=== PATIENT | male | born 1980 | race Caucasian/White ===

== ENCOUNTER → 2017-11-13 09:09 | Outpatient (CLI) | payer OTHER | END | disposition home or self-care (01) | LOC: D.RT 09:09 | DX: S62.92XA Unspecified fracture of left hand, initial encounter for closed fracture (principal); X58.XXXA Exposure to other specified factors, initial encounter; Y93.89 Activity, other specified; Y92.89 Other specified places as the place of occurrence of the external cause; E55.9 Vitamin D deficiency, unspecified; J06.9 Acute upper respiratory infection, unspecified ==

== ENCOUNTER → 2017-12-15 19:14 | Outpatient (CLI) | payer OTHER | END | disposition home or self-care (01) | LOC: D.SLEEP 19:14 | DX: G47.30 Sleep apnea, unspecified (principal) ==